=== PATIENT | female | born 1985 | race Caucasian/White ===

== ENCOUNTER 2022-04-21 10:25 | Outpatient (CLI) | payer MEDICAID, SELFPAY ==
--- NOTE | 2022-04-21 10:42 | XR_ITS ---
WS: [id number] Right ankle, 3 views, 04/21/2022 Clinical Data: R ANKLE PAIN/FALL AT HOME Comparison: None. Findings: No fractures or dislocations are seen. The ankle mortise is normal. The talus and calcaneus are unrem arkable. No soft tissue swelling over the medial or lateral malleolus is seen. XR/XR ankle RT min 3V* [id number] Impression: Negative right ankle.
== END 2022-04-21 10:26 | disposition home or self-care (01) ==
PROVIDERS: Family Provider Internal Medicine; Visit Provider Family Medicine
DX: M25.571 Pain in right ankle and joints of right foot (principal); W19.XXXA Unspecified fall, initial encounter
CPT/HCPCS: 73610

== ENCOUNTER 2023-11-13 13:41 | Outpatient (CLI) | payer MEDICAID, SELFPAY ==
--- NOTE | 2023-11-13 13:49 | XR_ITS ---
WS: [id number] Exam: XR knee RT 1-2V [id number] Date/Time of Exam: 11/13/2023 2:00 PM Reason For Exam: PAIN IN R KNEE/EFFUSION No fracture or dislocation. The joint compartments are preserved. No joint effusion. Normal soft tiss ues. XR/XR knee RT 1-2V [id number] IMPRESSION: 1. Normal RIGHT knee.
== END 2023-11-13 13:42 | disposition home or self-care (01) ==
LOC: RAD 13:44
PROVIDERS: Family Provider Internal Medicine; Visit Provider Nurse Practitioner Family
DX: M25.561 Pain in right knee (principal); M25.461 Effusion, right knee
CPT/HCPCS: 73560

== ENCOUNTER 2023-12-21 15:58 | Outpatient (CLI) | payer MEDICAID, SELFPAY ==
--- NOTE | 2023-12-21 16:02 | MR_ITS ---
WS: [id number] MRI RIGHT KNEE NONCONTRAST TECHNIQUE: Axial PD, coronal PD fat sat, coronal PD, sagittal PD, and sagittal PD fat-sat images obta ined. CLINICAL INFORMATION: RIGHT KNEE PAIN COMPARISON: None. FINDINGS: Distal quadriceps and patella tendons are intact. Normal ACL and PCL. Mild narrowing of the medial an d lateral joint compartments. No acute appearing meniscal tears. Chronic thinning of the medial menis cus. Mild chondromalacia patella worse involving the lateral patellar facet. Medial and lateral patellar retinaculum appear intact. Normal medial and lateral collateral ligaments . Normal popliteal fossa. Normal bone marrow signal involving the femoral condyles and tibial plateau . No other acute findings. MR/MR knee RT wo con* [id number] IMPRESSION: 1. Normal ACL and PCL. 2. No acute appearing meniscal tears. Mild chronic thinning of the medial meni scus. 3. Mild chondromalacia patella. 4. Medial and lateral collateral ligaments appear intact. 5. No other acute findings. Outbridge grading: grade II: blister-like swelling/fraying of articular cartila ge extending to surface
== END 2023-12-21 15:59 | disposition home or self-care (01) ==
LOC: RAD 15:59
PROVIDERS: Family Provider Internal Medicine; Visit Provider Family Medicine
DX: M23.305 Other meniscus derangements, unspecified medial meniscus, unspecified knee (principal)
CPT/HCPCS: 73721